=== PATIENT | female | born 1990 | race Caucasian/White ===

== ENCOUNTER 2017-03-02 16:51 | Emergency (ER) | payer OTHER | END 2017-03-02 20:34 | disposition home or self-care (01) | LOC: ER 16:51 → EDBD 16:51 → ER 20:34 | DX: S99.911A Unspecified injury of right ankle, initial encounter (principal); S93.621A Sprain of tarsometatarsal ligament of right foot, initial encounter; W01.0XXA Fall on same level from slipping, tripping and stumbling without subsequent striking against object, initial encounter; X50.0XXA Overexertion from strenuous movement or load, initial encounter; Y92.009 Unspecified place in unspecified non-institutional (private) residence as the place of occurrence of the external cause | CPT/HCPCS: 73610; 73630; 99070; 99283 ==